=== PATIENT | female | born 1995 ===

== ENCOUNTER 2018-05-23 12:39 | Emergency (ER) | payer BC, OTHER ==
[2018-05-23 12:59] VITALS: BP 149/93; PULSE 75; RESP 20; TEMP 98.3; O2SAT 98
== END 2018-05-23 14:54 | disposition home or self-care (01) | DRG 125 ==
LOC: ED 12:39
DX: H43.11 Vitreous hemorrhage, right eye (principal)
CPT/HCPCS: 70450; 70480; 99282; 99283